=== PATIENT | female | born 1980 | race Caucasian/White ===

== ENCOUNTER 2021-04-28 08:41 | Outpatient (CLI) | payer BC, SELFPAY ==
--- NOTE | 2021-05-22 19:32 | WPDHOMESLEEP ---
Sleep Study - Home Unattended Date of Study: 04/28/21 Ordering Provider: Vaughn Pisano APRN Interpreting Provider: Maira Hicks MD Home Sleep Study Type: Apnea Link Air Height: 1.75 m Weight: 120.202 kg Body Mass Index: 39.1 Neck Circumference (inches): 16 [place]: 13 Reason for Sleep Study Hypersomnia Sleep History Janice Ryan is a 41 year old female with difficulty falling asleep, waking during the night and having excessive daytime sleepiness. There is a family history with his father using CPAP. She has difficulties with being able to fall asleep. She does not awaken from sleep feeling short of breath. She occasionally awakens at night with heartburn, belching or coughing. She occasionally snores and rarely it is loud enough that others complain. she frequently has trouble sleeping with a cold. She does not wake up gasping for breath at night. She rarely has breathing problems at night observed by others. She does not sweat excessively at night. She does not notice her heart pounding or beating irregularly at night. She occasionally falls asleep during the day, never involuntarily but she does rarely fall asleep while driving. She does not have loss of muscle tone with strong emotion. She frequently has daytime difficulties due to excessive sleepiness. She does not feel paralyzed on waking or falling asleep nor does she have vivid dreamlike scenes upon awakening or falling asleep. She does not feel afraid to go to sleep. She rarely has nightmares. She frequently remembers her dreams and frequently has racing thoughts. She constantly feels sad, depressed and has anxiety. She constantly has muscular tension. She rarely notices parts of her body jerking and she rarely kicks at night. She does not have crawling and aching feelings in her legs. She rarely has any kind of leg pain at night. She does not have morning jaw pain and does nice grinding her teeth at night. She constantly is bothered by pain during the day, rarely awakened by pain at night. she occasionally wakes up feeling stiff in the morning with sore achy muscles he frequently wakes up with pain in the neck and spine. She has fatigue, palpitations, and depression. Normal bedtime is by 9:00 p.m. falling asleep within 15-45 minutes, waking twice at night. When she awakens during the night, she may play games on the phone or takes some deep breaths. She wakes in the morning by 5:00 a.m. She does not take naps in the afternoon or evening. A short nap is not refreshing. She is usually drowsy in the morning for 3 hours or longer. She estimates getting 6-7 hours of sleep at night. Habits: Never smoked tobacco. No caffeine. One alcoholic beverage a day. No recreational drugs. PMFSH Past Medical History Medical History Generalized anxiety disorder Severe recurrent major depression without psychotic features Family History Family History Grandparent Hypothyroidism Social History Social History Smoking status: Never smoker Medications Home Medications Medication Instructions Recorded Confirmed Type cholecalciferol (vitamin D3) 50 50 mcg PO DAILY 02/10/21 03/04/21 History mcg (2,000 unit) tablet epinephrine 0.3 mg/0.3 mL 0.3 mg IM ONCE 02/10/21 03/04/21 History injection, auto-injector sertraline 100 mg tablet 150 mg PO DAILY tablet 02/10/21 03/04/21 History vitamin B complex 1 tablet PO DAILY 02/10/21 03/04/21 History ascorbic acid (vitamin C) 1,000 mg 1 g PO DAILY 03/04/21 03/04/21 History tablet clonazepam 0.5 mg tablet 0.5 mg PO DAILY 03/04/21 03/04/21 History magnesium 250 mg tablet 250 mg PO DAILY 03/04/21 03/04/21 History norethindrone 0.5 mg-ethinyl 1 tablet PO DAILY 03/04/21 03/04/21 History estradiol 35 mcg tablet Sleep Procedure This test wa
[2021-05-22 19:37] VITALS: BMI 39.1
== END 2021-04-29 11:36 | disposition home or self-care (01) ==
PROVIDERS: Visit Provider Nurse Practitioner Family
DX: R53.83 Other fatigue (principal); G47.10 Hypersomnia, unspecified; Z68.39 Body mass index [BMI] 39.0-39.9, adult
CPT/HCPCS: 95806

== ENCOUNTER 2022-08-09 07:26 | Outpatient (CLI) | payer BC, SELFPAY ==
--- NOTE | ~2022-08-09 | MM_ITS ---
EXAMINATION: MM screening eusebia BI w christiana HISTORY: Screening mammogram TECHNIQUE: Craniocaudal and mediolateral oblique 3-D tomosynthesis images were obtained and synthetic 2-D images were generated. Bilateral rotated lateral CC views. CAD analysis was submitted and interp reted. COMPARISON: No prior mammogram is available for comparison at this institution. BREAST PARENCHYMAL COMPOSITION: There are scattered areas of fibroglandular density. FINDINGS: There is no evidence of suspicious mass, calcification, or architectural distortion to sugg est malignancy in either breast. There has been no suspicious interval change. IMPRESSION: 1. No mammographic evidence of malignancy. 2. Recommend routine screening mammography in one year. BI-RADS Category 1: Negative Reviewed, dictated and finalized at location A. OPERATION SUPERVISOR
== END 2022-08-09 07:27 | disposition home or self-care (01) ==
PROVIDERS: PCP Family Medicine; Visit Provider Obstetrics & Gynecology
DX: Z12.31 Encounter for screening mammogram for malignant neoplasm of breast (principal)
CPT/HCPCS: 77063; 77067

== ENCOUNTER 2022-09-19 16:05 | Emergency (ER) | payer BC, SELFPAY ==
--- NOTE | 2022-09-19 16:07 | ED.URI ---
HPI - URI/Sore Throat General Chief Complaint: Upper Respiratory Infection Stated Complaint: HEADACHE/LIGHT HEADED/DIARRHEA Time Seen by Provider: 09/19/22 16:07 Source: patient Mode of arrival: ambulatory Limitations: no limitations History of Present Illness HPI Narrative: Janice is a 42-year-old female patient presenting to clinic today with complaints of headache, dizziness, and diarrhea x2 days. She reports no nasal congestion, cough, fever, or chills. She reports that she has had a couple episodes of diarrhea. Reports that she had a headache this morning and took Advil and allergies to 10/29. MD elicited complaint: sore throat and nasal congestion Related Data Home Medications Medication Instructions Recorded Confirmed cholecalciferol (vitamin D3) 50 50 mcg PO DAILY 02/10/21 09/19/22 mcg (2,000 unit) tablet epinephrine 0.3 mg/0.3 mL 0.3 mg IM ONCE 02/10/21 09/19/22 injection, auto-injector sertraline 100 mg tablet 150 mg PO DAILY 02/10/21 09/19/22 vitamin B complex (B 1 tablet PO DAILY 02/10/21 09/19/22 Complex-Vitamin B12 tablet) ascorbic acid (vitamin C) 1,000 mg 1 g PO DAILY 03/04/21 09/19/22 tablet clonazepam 0.5 mg tablet 0.5 mg PO DAILY 03/04/21 09/19/22 magnesium 250 mg tablet 250 mg PO DAILY 03/04/21 09/19/22 norethindrone 0.5 mg-ethinyl 1 tablet PO DAILY 03/04/21 09/19/22 estradiol 35 mcg tablet (Nortrel) Allergies Allergy/AdvReac Type Severity Reaction Status Date / Time azithromycin AdvReac Mild DIARRHEA Verified 09/19/22 16:07 tramadol AdvReac Mild Headache Verified 09/19/22 16:07 Review of Systems Review of Systems: Pertinent positives per HPI. Patient denies any fever, chills, rash, headache, visual changes, cough, runny nose, sore throat, shortness of breath, chest pain, palpitations, nausea, vomiting, diarrhea, constipation, abdominal pain, or any urinary issues. PMFSH Past Medical History Medical History Generalized anxiety disorder Severe recurrent major depression without psychotic features Family History Family History Grandparent Hypothyroidism Social History Social History Smoking status: Never smoker Comments At the time of my signature, I reviewed and agree with the nursing past medical, surgical, social, and family history. There is no relevant family history pertinent to the patient complaint. Exam Narrative: General: Well-developed, well nourished, in no apparent distress Head: Normocephalic, atraumatic Eyes: Pupils equally round and reactive to light bilaterally, EOM intact, sclera and conjunctive clear, no discharge, lids normal Ears: TMs intact and clear, ear canals clear, no drainage, grossly hearing normal. Nose: Nares patent, no discharge, no inflammation, no sinus tenderness. Mouth: Oral pharynx without lesions or masses, good dentition, MMM. Neck: Supple, trachea midline, no enlargement of anterior or posterior cervical nodes, no thyroid masses or goiter palpable. Cardio: Regular rate and rhythm, s1 and s2 normal, no murmur appreciated. Resp: Clear to auscultation bilaterally, no rhonchi, rales, wheezing or rubs Course Course Emergency Course: Portions of this record may have been created with voice recognition software. Level of Care: Express Care Visit Vital Signs Vital signs: Vital Signs Temperature 36.4 C 09/19/22 16:12 Pulse Rate 96 09/19/22 16:12 Respiratory Rate 16 09/19/22 16:12 Blood Pressure 133/82 09/19/22 16:12 Pulse Oximetry 99 09/19/22 16:12 Temperature 36.4 C 09/19/22 16:12 Pulse Rate 96 09/19/22 16:12 Respiratory Rate 16 09/19/22 16:12 Blood Pressure 133/82 09/19/22 16:12 Pulse Oximetry 99 09/19/22 16:12 Vital signs reviewed MDM - URI/Sore Throat MDM Narrative Medical decision making narrative: At the time of
[2022-09-19 16:12] VITALS: BP 133/82; PULSE 96; RESP 16; TEMP 36.4; O2SAT 99
== END 2022-09-19 16:25 | disposition home or self-care (01) ==
PROVIDERS: Emergency Provider Nurse Practitioner Family; PCP Family Medicine
DX: H69.93 Unspecified Eustachian tube disorder, bilateral (principal); R19.7 Diarrhea, unspecified; J06.9 Acute upper respiratory infection, unspecified; G44.89 Other headache syndrome; F41.1 Generalized anxiety disorder; F33.9 Major depressive disorder, recurrent, unspecified
CPT/HCPCS: 99213; G0463

== ENCOUNTER → 2023-08-25 14:07 | Outpatient (CLI) | payer BC, SELFPAY ==
--- NOTE | ~2023-08-25 | MR_ITS ---
EXAMINATION: MR shoulder RT wo con DATE: 08/25/2023 14:37 INDICATION: Right shoulder pain TECHNIQUE: Magnetic resonance imaging (MRI) of the right shoulder was performed without intravenous c ontrast. Sequences included axial PD-weighted FS FSE, coronal oblique PD-weighted FS FSE, coronal obl ique T2-weighted FS FSE, sagittal PD-weighted FS FSE, and sagittal T1-weighted SE. COMPARISON: None. FINDINGS: Coracoacromial arch: The acromion undersurface is convex in morphology (type IV). The coracoacromial ligament is normal. N egligible acromioclavicular osteoarthritis. Rotator cuff: Moderate supraspinatus tendinopathy without tear. The infraspinatus and teres minor tendons are arina l. Mild subscapularis tendinopathy with small associated split tear arising along the lateral margin of the cephalad half of the lesser tuberosity extending between the portion of the tendon attached to a lesser tuberosity and the more superficial bursal side of the tendon which remains intact and cont iguous with the intact transverse humeral ligament. The split tear extends up to 1.5 cm medially. The long head of the biceps tendon is partially subluxed across the cephalad-most medial rim of the inte rtubercular groove at the defect resulting from the split tear. Normal rotator cuff muscle bulk and s ignal. Biceps tendon, glenoid labrum and glenohumeral cartilage: Aside from the mild subluxation the long head of the biceps tendon is normal. Glenoid labrum is arina l. Glenohumeral cartilage is normal. Fluid: Physiologic amount of fluid in the glenohumeral joint and biceps tendon sheath. No loose osteochondr al bodies. Trace amount of fluid in the subacromial/subdeltoid bursa projecting possible minimal burs itis. Bones: Normal marrow signal with no edema, fracture or abnormal marrow replacing process. IMPRESSION: 1. [Subscapularis tendinopathy with small longitudinal split tear along the lateral margin of the cep halad lesser tuberosity/medial rim of the intertubercular groove with partial subluxation of the othe rwise normal long head biceps tendon into the tear defect. 2. Mild supraspinatus tendinopathy without tear. Reviewed, dictated and finalized at location A. EPOINT ARCHITECT IMPRESSION: 1. [Subscapularis tendinopathy with small longitudinal split tear along the lat eral margin of the cephalad lesser tuberosity/medial rim of the intertubercular groove with partial subluxation of the otherwise normal long head biceps tendo n into the tear defect. 2. Mild supraspinatus tendinopathy without tear.
== END ==
PROVIDERS: PCP Nurse Practitioner Family; Visit Provider Nurse Practitioner Family
DX: M25.511 Pain in right shoulder (principal); M75.91 Shoulder lesion, unspecified, right shoulder
CPT/HCPCS: 73221

== ENCOUNTER → 2023-10-13 08:15 | Outpatient (CLI) | payer BC, SELFPAY ==
--- NOTE | ~2023-10-13 | US_ITS ---
Pelvic ultrasound. Clinical History: Menometrorrhagia Technique: Realtime transabdominal and transvaginal scanning of the pelvis was performed. Color flow Doppler and Doppler spectral analysis were performed. Findings: The uterus is retroverted. The endometrial stripe has a thickness of 4 mm. Small fundal fi broid measures 1.6 cm in diameter. Additional small intramural fibroid measures 1.4 cm in diameter.. The right ovary measures 2.0 x 1.2 x 3.3 cm. No significant right ovarian or adnexal mass is seen. The left ovary measures 2.5 x 1.1 x 2.1 cm. No significant left ovarian or adnexal mass is seen. There is trace free fluid in the cul de sac. Impression: Small uterine fibroids, as above. Trace free fluid, nonspecific. Reviewed, dictated and finalized at [facility]. TROTYPER HELPER Impression: Small uterine fibroids, as above. Trace free fluid, nonspecific.
== END ==
PROVIDERS: PCP Obstetrics & Gynecology; Visit Provider Obstetrics & Gynecology
DX: D25.9 Leiomyoma of uterus, unspecified (principal); N92.0 Excessive and frequent menstruation with regular cycle
CPT/HCPCS: 76830; 76856